=== PATIENT | male | born 1945 | race African-American/Black ===

== ENCOUNTER → 2018-07-15 | Outpatient (CLI) | payer MEDICARE ==
[~2018-07-15] MED LIST: ALDACTONE25 MG PO; ASA81 MG PO; ASPIR 8181 MG; ATENOLOL25 MG PO; ATORVASTATIN CA10 MG PO; CARAFATE1 G1 PO; COUMADIN5 MG PO; COZAAR50 MG PO; FAMOTIDINE20 MG PO; HYDRALAZINE HC100 MG PO; HYDROCHLOROTHIA25 MG; IMDUR30 MG; ISOSORBIDE MONO30 MG PO; METFORMIN HCL500 M3 PO; METFORMIN HCL850 MG PO; METOPROLOL SUCC25 MG; PLAVIX75 MG PO; VERAPAMIL ER120 MG; VERAPAMIL ER120 MG PO; WARFARIN SODIU2.5 MG PO; XARELTO20 MG PO; Z.0.AMLODIPINE BESY1 PO; Z.0.CLONIDINE HCL0.1 PO; Z.0.HYDRALAZINE HCL2 PO; Z.0.HYDROCHLOROTHIA2 PO; Z.0.PLAVIX75 MG PO
--- NOTE | 2018-07-15 08:49 | Diagnostic Imaging Report ---
EXAM: CT Chest WITHOUT contrast 07/15/2018 7:45 AM INDICATION: Abnormal finding on lung field. COMPARISON: CT scan November 12, 2014. Chest radiograph April 06, 2014. TECHNIQUE: Chest was scanned utilizing a multidetector helical scanner from the lung apex through the level of the adrenal glands without administration of IV contrast. Absence of intravenous contrast decreases sensitivity for detection of lymphadenopathy and vascular pathology. Coronal and sagittal reformations were obtained. Routine protocol was performed. IV CONTRAST: None RADIATION DOSE: Total DLP: 524.63 mGy*cm Estimated effective dose: (DLP x 0.014 x size factor) mSv COMPLICATIONS: None FINDINGS: LINES/ TUBES: None. LUNGS AND AIRWAYS: Mild chronic appearing change in the lungs. Airways are normal. PLEURA: Nonspecific multifocal pleural thickening with scattered calcification. No pleural effusion or pneumothorax. HEART AND MEDIASTINUM: The thyroid gland is normal. No mediastinal, hilar or axillary lymphadenopathy. Cardiomegaly with pulmonary vascular congestion. Scattered calcification in the coronary arteries, aorta and branch vessels. There is no pericardial effusion. UPPER ABDOMEN: Likely simple cysts in the kidneys. BONES: The visualized bony thorax is within normal limits. SOFT TISSUES: Gynecomastia. IMPRESSION: Nonspecific multifocal pleural thickening with scattered calcification. This could be due to prior asbestosis exposure. Cardiomegaly with pulmonary vascular congestion. Scattered calcification in the coronary arteries, aorta and branch vessels Signed by: Dr. Allen Corado M.D. on 07/15/2018 8:46 AM
== END ==
LOC: CT 07:34
PROVIDERS: ATTEND Internal Medicine
DX: R91.8 Other nonspecific abnormal finding of lung field (principal); R05 Cough
CPT/HCPCS: 71250

== ENCOUNTER → 2018-07-23 | Outpatient (CLI) | payer MEDICARE ==
[~2018-07-23] MED LIST changes: +ALBUTEROL/IPRATROPIUM 3 ML NEB ONE
== END ==
LOC: RESP 08:51
PROVIDERS: ATTEND Internal Medicine
DX: R05 Cough (principal)
CPT/HCPCS: 94060; 94727; 94729

== ENCOUNTER 2020-07-05 15:17 | Emergency (ER) | payer MEDICARE ==
[~2020-07-05] VITALS: Ht 180.3 cm; Wt 79.8 kg
[~2020-07-05 15:17] MED LIST changes: -ALBUTEROL/IPRATROPIUM 3 ML NEB ONE; +AMLODIPINE BESY10 MG PO; +CLARITIN10 MG PO; +CLONIDINE HCL0.1 M1 PO; +FINASTERIDE5 MG PO; +FLOMAX0.4 MG PO; +HYDROCHLOROTHIA25 MG PO; +LIPITOR10 MG PO; +METFORMIN HCL500 MG PO; +METOPROLOL SUCC50 MG PO; +WARFARIN SODIUM3 MG PO
[2020-07-05 15:52] LABS: BASOPHILS # (AUTO) 0.1 (0.0-0.1); BASOPHILS % 0.9 % (0.0-1.0); EOSINOPHILS # (AUTO) 0.1 (0.0-0.4); EOSINOPHILS % 1.8 % (0.0-6.0); HEMATOCRIT 41.8 % (38.2-49.6); HEMOGLOBIN 13.6 g/dL (14.0-18.0); LYMPHOCYTES # (AUTO) 2.9 (1.0-3.2); LYMPHOCYTES % 43.2 % (18.0-39.1); MEAN CORPUSCULAR HEMOGLOBIN 28.2 pg (28-32); MEAN CORPUSCULAR HGB CONC 32.5 g/dL (31-35); MEAN CORPUSCULAR VOLUME 86.5 fL (81-99); MONOCYTES # (AUTO) 0.6 (0.2-0.8); MONOCYTES % 9.3 % (4.4-11.3); NEUTROPHILS % 44.7 % (38.7-80.0); PLATELET COUNT 180 x10e3/uL (140-360); RED BLOOD COUNT 4.83 x10e6/uL (4.3-5.7); RED CELL DISTRIBUTION WIDTH 13.6 % (11.7-14.4)
[2020-07-05 16:03] LABS: CLARITY,URINE CLEAR (CLEAR); COLOR,URINE YELLOW (YELLOW); KETONES,URINE NEGATIVE (NEGATIVE); LEUKOCYTE ESTERASE ,URINE NEGATIVE (NEGATIVE); NITRITE,URINE NEGATIVE (NEGATIVE); PROTEIN,URINE DIPSTICK NEGATIVE (NEGATIVE); URINE UROBILINOGEN 0.2 mg/dL (0.2 - 1)
[2020-07-05 16:08] LABS: ALANINE AMINOTRANSFERASE 14 IU/L (0-55); ALBUMIN 4.2 g/dL (3.5-5.0); ALBUMIN/GLOBULIN RATIO 0.9 (0.8-2.0); ALKALINE PHOSPHATASE 66 IU/L (40-150); ANION GAP 14.9 mmol/L (8-16); BLOOD UREA NITROGEN 25 mg/dL (7-26); BUN/CREATININE RATIO 20 (6-25); CARBON DIOXIDE 29 mmol/L (22-29); CHLORIDE 99 mmol/L (98-107); CREATINE KINASE 89 IU/L (30-200); CREATININE, SERUM 1.24 mg/dL (0.72-1.25); EST GLOMERULAR FILTRATION RATE > 60 ML/MIN (60-); GLUCOSE 320 mg/dL (74-118); POTASSIUM 3.9 mmol/L (3.5-5.1); SODIUM 139 mmol/L (136-145)
[2020-07-05 16:58] LABS: RBC,URINE 0-5 /HPF (0-5); WBC,URINE (MAN) 0-5 /HPF (0-5)
== END 2020-07-05 16:50 | disposition home or self-care (01) ==
LOC: ER 15:26
DX: E11.65 Type 2 diabetes mellitus with hyperglycemia (principal); I10 Essential (primary) hypertension; I48.91 Unspecified atrial fibrillation; Z95.5 Presence of coronary angioplasty implant and graft
CPT/HCPCS: 36415; 80053; 81001; 82550; 82553; 84484; 85025; 99284

== ENCOUNTER → 2020-07-07 | Day surgery (SDC) | payer MEDICARE ==
[2020-07-05 13:43] LABS: BASOPHILS # (AUTO) 0.1 (0.0-0.1); BASOPHILS % 0.8 % (0.0-1.0); EOSINOPHILS # (AUTO) 0.1 (0.0-0.4); EOSINOPHILS % 1.2 % (0.0-6.0); HEMATOCRIT 41.5 % (38.2-49.6); HEMOGLOBIN 13.5 g/dL (14.0-18.0); LYMPHOCYTES # (AUTO) 2.4 (1.0-3.2); LYMPHOCYTES % 37.7 % (18.0-39.1); MEAN CORPUSCULAR HEMOGLOBIN 28.4 pg (28-32); MEAN CORPUSCULAR HGB CONC 32.5 g/dL (31-35); MEAN CORPUSCULAR VOLUME 87.4 fL (81-99); MONOCYTES # (AUTO) 0.6 (0.2-0.8); MONOCYTES % 9.5 % (4.4-11.3); NEUTROPHILS # (AUTO) 3.2 (2.1-6.9); NEUTROPHILS % 50.5 % (38.7-80.0); PLATELET COUNT 184 x10e3/uL (140-360); RED BLOOD COUNT 4.75 x10e6/uL (4.3-5.7); RED CELL DISTRIBUTION WIDTH 13.6 % (11.7-14.4)
[2020-07-05 14:18] LABS: ANION GAP 13.8 mmol/L (8-16); BLOOD UREA NITROGEN 25 mg/dL (7-26); BUN/CREATININE RATIO 18 (6-25); CALCIUM 9.9 mg/dL (8.4-10.2); CARBON DIOXIDE 28 mmol/L (22-29); CHLORIDE 99 mmol/L (98-107); CREATININE, SERUM 1.37 mg/dL (0.72-1.25); EST GLOMERULAR FILTRATION RATE > 60 ML/MIN (60-); POTASSIUM 4.8 mmol/L (3.5-5.1); SODIUM 136 mmol/L (136-145)
[2020-07-05 14:39] LABS: GLUCOSE 432 mg/dL (74-118)
[~2020-07-07] MED LIST changes: +CEFTRIAXONE SOD 1 GM VIAL ONE; +EPHEDRINE SULFATE INJ 50 MG/ML VIAL ONE; +GENTAMICIN 80MG/NS 100 ML 200 ML IV ONE; +INSULIN REGULAR, HUMAN 100 UNIT/1 ML 3ML VIAL ONE; +LIDOCAINE HCL 2% LOCAL INJ 5 ML SDV VIAL INJ ONE; +ONDANSETRON HCL INJ 2MG/ML 2ML 2 MG/ML VIAL ONE; +PROPOFOL IV EMULSION 10 MG/ML 20 ML VIAL ONE; +SEVOFLURANE INHAL SOLN 250 ML PEN BTL ONE; +SODIUM CHLORIDE 0.9% 50ML 50 ML ONE
[2020-07-07 08:51] LABS: INR 0.94; PARTIAL THROMBOPLASTIN TIME 24.2 seconds (23.8-35.5); PROTHROMBIN TIME 13.1 seconds (11.9-14.5)
[2020-07-07 10:45] VITALS: BP 155/89
== END | disposition home or self-care (01) ==
LOC: OR 07:09
PROVIDERS: ATTEND Urology
DX: N40.1 Benign prostatic hyperplasia with lower urinary tract symptoms (principal); N13.8 Other obstructive and reflux uropathy; N39.0 Urinary tract infection, site not specified; N32.89 Other specified disorders of bladder; I10 Essential (primary) hypertension; E11.9 Type 2 diabetes mellitus without complications; K21.9 Gastro-esophageal reflux disease without esophagitis; I25.10 Atherosclerotic heart disease of native coronary artery without angina pectoris; R00.1 Bradycardia, unspecified; I48.91 Unspecified atrial fibrillation; Z01.810 Encounter for preprocedural cardiovascular examination; Z01.812 Encounter for preprocedural laboratory examination; Z01.818 Encounter for other preprocedural examination; Z20.822 Contact with and (suspected) exposure to COVID-19; Z79.01 Long term (current) use of anticoagulants; Z79.84 Long term (current) use of oral hypoglycemic drugs; Z95.5 Presence of coronary angioplasty implant and graft
CPT/HCPCS: 52005; C9740; 36415; 71046; 74420; 80048; 82948; 85025; 85610; 85730; 93005; C1758; J0696; J1580; J1817; J2001; J2405; L8699; U0002

== ENCOUNTER → 2020-08-13 | Day surgery (SDC) | payer MEDICARE ==
[2020-08-09 11:57] LABS: BASOPHILS # (AUTO) 0.1 (0.0-0.1); EOSINOPHILS # (AUTO) 0.2 (0.0-0.4); EOSINOPHILS % 3.9 % (0.0-6.0); HEMATOCRIT 39.9 % (38.2-49.6); LYMPHOCYTES # (AUTO) 2.2 (1.0-3.2); LYMPHOCYTES % 44.8 % (18.0-39.1); MEAN CORPUSCULAR HEMOGLOBIN 28.8 pg (28-32); MEAN CORPUSCULAR HGB CONC 32.6 g/dL (31-35); MEAN CORPUSCULAR VOLUME 88.3 fL (81-99); MONOCYTES # (AUTO) 0.6 (0.2-0.8); MONOCYTES % 12.2 % (4.4-11.3); NEUTROPHILS # (AUTO) 1.9 (2.1-6.9); NEUTROPHILS % 37.9 % (38.7-80.0); PLATELET COUNT 144 x10e3/uL (140-360); RED BLOOD COUNT 4.52 x10e6/uL (4.3-5.7); RED CELL DISTRIBUTION WIDTH 14.2 % (11.7-14.4)
[2020-08-09 12:23] LABS: ALANINE AMINOTRANSFERASE 15 IU/L (0-55); ALBUMIN 3.6 g/dL (3.5-5.0); ALKALINE PHOSPHATASE 57 IU/L (40-150); BLOOD UREA NITROGEN 19 mg/dL (7-26); BUN/CREATININE RATIO 16 (6-25); CALCIUM 9.2 mg/dL (8.4-10.2); CARBON DIOXIDE 30 mmol/L (22-29); CHLORIDE 102 mmol/L (98-107); CREATININE, SERUM 1.17 mg/dL (0.72-1.25); EST GLOMERULAR FILTRATION RATE > 60 ML/MIN (60-); GLUCOSE 130 mg/dL (74-118); SODIUM 140 mmol/L (136-145)
[~2020-08-13] VITALS: Ht 180.3 cm; Wt 79.8 kg
[2020-08-13] VITALS (7 sets, daily range): BP systolic 143–199; BP diastolic 76–98
[~2020-08-13] MED LIST changes: -CEFTRIAXONE SOD 1 GM VIAL ONE; -EPHEDRINE SULFATE INJ 50 MG/ML VIAL ONE; +FENTANYL CITRATE/PF 100MCG/2 ML INJ ONE; -GENTAMICIN 80MG/NS 100 ML 200 ML IV ONE; +HEPARIN SOD (PORCINE) 1000 UNIT/ML 30ML ONE; +HEPARIN SOD/SOD CHLORIDE 2,000 ML ONE; -INSULIN REGULAR, HUMAN 100 UNIT/1 ML 3ML VIAL ONE; +IOPAMIDOL 370 MG/ML 200 ML INFUS..BTL INJ ONE; +LIDOCAINE HCL 2% LOCAL 20 ML VIAL ONE; -LIDOCAINE HCL 2% LOCAL INJ 5 ML SDV VIAL INJ ONE; +MIDAZOLAM HCL 2 MG/2 ML VIAL ONE; +NITROGLYCERIN/D5W 200 MCG/ML 250 ML ONE; -ONDANSETRON HCL INJ 2MG/ML 2ML 2 MG/ML VIAL ONE; -PROPOFOL IV EMULSION 10 MG/ML 20 ML VIAL ONE; -SEVOFLURANE INHAL SOLN 250 ML PEN BTL ONE; +SODIUM CHLORIDE 0.9% 1000ML 1,000 ML ONE; -SODIUM CHLORIDE 0.9% 50ML 50 ML ONE; +VERAPAMIL HCL 2.5 MG/ML 2 ML VIAL ONE
== END | disposition home or self-care (01) ==
LOC: CATH LAB 11:10
PROVIDERS: ATTEND Internal Medicine Interventional Cardiology
DX: I25.119 Atherosclerotic heart disease of native coronary artery with unspecified angina pectoris (principal); R94.39 Abnormal result of other cardiovascular function study; I48.91 Unspecified atrial fibrillation; I47.2 Ventricular tachycardia; Z01.812 Encounter for preprocedural laboratory examination; Z20.822 Contact with and (suspected) exposure to COVID-19; Z79.01 Long term (current) use of anticoagulants; Z95.5 Presence of coronary angioplasty implant and graft
CPT/HCPCS: 36415 ×2; 76937; 80053; 82948; 83880; 85025; 93454; C1769; C1887; J1644; J2001; J2250; J3010; J7030; Q9967; U0002; 99152

== ENCOUNTER 2021-12-28 12:21 | Emergency (ER) | payer OTHER ==
[~2021-12-28] VITALS: Ht 180.3 cm; Wt 79.8 kg
[~2021-12-28 12:21] MED LIST changes: -FENTANYL CITRATE/PF 100MCG/2 ML INJ ONE; -HEPARIN SOD (PORCINE) 1000 UNIT/ML 30ML ONE; -HEPARIN SOD/SOD CHLORIDE 2,000 ML ONE; -IOPAMIDOL 370 MG/ML 200 ML INFUS..BTL INJ ONE; -LIDOCAINE HCL 2% LOCAL 20 ML VIAL ONE; -MIDAZOLAM HCL 2 MG/2 ML VIAL ONE; -NITROGLYCERIN/D5W 200 MCG/ML 250 ML ONE; -SODIUM CHLORIDE 0.9% 1000ML 1,000 ML ONE; -VERAPAMIL HCL 2.5 MG/ML 2 ML VIAL ONE
[2021-12-28] MEDS ORDERED: IBUPROFEN 600 MG TAB PO STA (13:06)
[2021-12-28] MEDS ORDERED: IBUPROFEN400 MG PO (14:34)
[2021-12-28 15:16] VITALS: BP 148/75
== END 2021-12-28 14:42 | disposition home or self-care (01) ==
LOC: ER 12:34
DX: S76.812A Strain of other specified muscles, fascia and tendons at thigh level, left thigh, initial encounter (principal); W01.0XXA Fall on same level from slipping, tripping and stumbling without subsequent striking against object, initial encounter; Y93.01 Activity, walking, marching and hiking; Y92.89 Other specified places as the place of occurrence of the external cause; I10 Essential (primary) hypertension; E11.9 Type 2 diabetes mellitus without complications; I48.91 Unspecified atrial fibrillation; Z95.5 Presence of coronary angioplasty implant and graft
CPT/HCPCS: 99283

== ENCOUNTER 2024-11-03 11:36 | Emergency (ER) | payer OTHER ==
[~2024-11-03] VITALS: Ht 180.3 cm; Wt 80.7 kg
[~2024-11-03 11:36] MED LIST changes: +IBUPROFEN400 MG PO
[2024-11-03 11:54] VITALS: PULSE 68; RESP 18; TEMP 98.1
[2024-11-03] MEDS: DEXAMETHASONE 4 MG TAB PO STA (14:23)
[2024-11-03] MEDS: KETOROLAC TROMETHAMINE 30 MG/ML VIAL IM STA (14:23)
[2024-11-03] MEDS: LIDOCAINE 4% PATCH TP STA (14:24)
[2024-11-03] MEDS ORDERED: NAPROXEN375 MG PO (15:05)
[2024-11-03 15:20] VITALS: BP 128/78; PULSE 78; RESP 16; TEMP 98.2; O2SAT 98
== END 2024-11-03 15:15 | disposition home or self-care (01) ==
LOC: ER 12:34
DX: M54.50 Low back pain, unspecified (principal); I10 Essential (primary) hypertension; E11.9 Type 2 diabetes mellitus without complications; I48.91 Unspecified atrial fibrillation; Z95.5 Presence of coronary angioplasty implant and graft
CPT/HCPCS: 72131; 99283; J1885; J8540